=== PATIENT | female | born 1990 | race Two or more races ===

== ENCOUNTER 2021-05-26 05:34 | Emergency (ER) | payer OTHER ==
[~2021-05-26] VITALS: Ht 139.7 cm; Wt 129.3 kg
--- NOTE | 2021-05-26 05:42 | NUR ---
PT BIB 87 C/O DIZZINESS, N/V X3. PT A/OX4. TOLERATING R/A WELL WITH NO SOB. CONNECTED PT TO POX AND MONITOR
--- NOTE | 2021-05-26 06:00 | NUR ---
PT REPORTED TO HAVE STARTED PERIOD RECENTLY AND NOTED HEAVY FLOW WITH CLOTS, PER PT, SHE HAS USED APPROX 8-9 PADS TOTAL TODAY; PATIENT DENIES PAIN, REPORTS REGULAR CRAMPING; SAYS SHE IS MORE CONCERNED ABOUT NAUSEA AND VOMITING SHE IS NOT ABLE TO HOLD ANYTHING DOWN, NOT EVEN WATER; PT REPORTED SHE DRANK PRESCRIBED MEDICATIONS BUT THREW THEM UP; UNABLE TO WALK WALKING MAKES NAUSEA WORSE; AWAITING MD FOR EVAL
--- NOTE | 2021-05-26 06:12 | NUR ---
AT BEDSIDE FOR EVAL
[2021-05-26] MEDS ORDERED: ONDANSETRON HCL/PF 4 MG/2 ML VIAL ONE (06:23)
[2021-05-26] MEDS ORDERED: IV NS 0.9% 1,000 ML BAG IV ONE (06:30)
[2021-05-26] MEDS ORDERED: ONDANSETRON HCL/PF 4 MG/2 ML VIAL IVP ONE (06:30)
--- NOTE | 2021-05-26 06:37 | NUR ---
LAC #20G S/L; PATENT AND INTACT. FOURDRINIER MACHINE OPERATOR AT PT'S BEDSIDE
--- NOTE | 2021-05-26 06:41 | NUR ---
ALL DUE MEDS GIVEN
--- NOTE | 2021-05-26 06:42 | NUR ---
OFFERED PT URINE CUP, NOT ABLE TO URINATE AT THIS TIME. WILL TRY AGAIN LATER. TYPISTS SUPERVISOR NOT ABLE TO DRAW BLOOD. OTHER TYPISTS SUPERVISOR WILL COME TO DRAW.
--- NOTE | 2021-05-26 06:43 | NUR ---
PT UNABLE TO PROVIDE URINE SAMPLE AT THIS TIME
--- NOTE | 2021-05-26 07:37 | NUR ---
PT TOLERATED AMBULATING TO BATHROOM; STEADY GAIT; PT REPORTED NAUSEA IS BETTER AFTER ADMINISTRATION OF ZOFRAN; URINE SAMPLE COLLECTED AND SENT TO LAB
--- NOTE | 2021-05-26 07:45 | NUR ---
PT AMBULATED BACK TO BED 9, CONNECTED TO MONITOR. VS STABLE. WILL CONTINUE TO MONITOR.
--- NOTE | 2021-05-26 07:50 | NUR ---
GUEST SERVICES MANAGER UNABLE TO DRAW BLOOD X2. ANOTHER GUEST SERVICES MANAGER WILL TRY TO DRAW BLOOD.
--- NOTE | 2021-05-26 08:07 | NUR ---
PT'S MOTHER AT BEDSIDE.
--- NOTE | 2021-05-26 08:44 | NUR ---
LAB CALLED. THEY SAID WILL SEND PERSON TO DRAW BLOOD.
--- NOTE | 2021-05-26 08:51 | NUR ---
LAB AT BEDSIDE
[2021-05-26 09:07] LABS: BASOPHILS % (AUTO) 0.6 % (0.0-2.0); EOSINOPHILS % (AUTO) 0.4 % (0.0-6.0); HEMATOCRIT 38 % (33-45); HEMOGLOBIN 12.7 g/dL (11.5-14.8); LYMPHOCYTES % (AUTO) 15.6 % (20.0-44.0); MEAN CORPUSCULAR HGB CONC 34 g/dl (31.0-36.0); MEAN CORPUSCULAR VOLUME 84 fL (82-100); MONOCYTES # (AUTO) 0.2 K/uL (0.1-1.30); MONOCYTES % (AUTO) 2.6 % (2.0-12.0); NEUTROPHILS # (AUTO) 5.2 K/uL (1.8-8.9); NEUTROPHILS % (AUTO) 80.8 % (43.0-81.0); PLATELET COUNT (AUTO) 270 K/uL (150-450); RED BLOOD CELL COUNT(AUTO) 4.49 MIL/uL (4.0-5.2); WHITE BLOOD COUNT (AUTO) 6.4 K/uL (4.3-11.0)
[2021-05-26 09:40] LABS: ALBUMIN 3.2 g/dL (3.4-5.0); BILIRUBIN,DIRECT 0.1 mg/dL (0.0-0.2); BILIRUBIN,TOTAL 0.2 mg/dL (0.2-1.0); CALCIUM, SERUM 8.2 mg/dL (8.5-10.1); CREATININE 0.9 mg/dL (0.6-1.3); POTASSIUM 4.1 mmol/L (3.5-5.1); TOTAL PROTEIN, SERUM 6.7 g/dL (6.4-8.2)
[2021-05-26] MEDS ORDERED: ONDA4TAB11 PO (10:38)
--- NOTE | 2021-05-26 10:45 | NUR ---
IV removed. Catheter intact and site benign. Pressure and 4x4 applied to site. No bleeding noted.
--- NOTE | 2021-05-26 10:46 | NUR ---
Patient discharged to home in stable condition. Written and verbal after care instructions given. Patient verbalizes understanding of instruction.
[2021-05-26 10:47] VITALS: BP 133/94
== END 2021-05-26 10:47 | disposition home or self-care (01) ==
LOC: ER 05:36
DX: R42 Dizziness and giddiness (principal); R11.2 Nausea with vomiting, unspecified; N93.9 Abnormal uterine and vaginal bleeding, unspecified; E03.9 Hypothyroidism, unspecified; Z88.8 Allergy status to other drugs, medicaments and biological substances; Z60.2 Problems related to living alone; Z79.899 Other long term (current) drug therapy
CPT/HCPCS: 36415; 80048; 80076; 83690; 84703; 85025; 96361; 96374; 99283; J2405; J7030